=== PATIENT | male | born 1965 | race Caucasian/White ===

== ENCOUNTER 2016-11-13 22:44 | Day surgery (SDC) | payer BC, SELFPAY ==
[~2016-11-13] VITALS: Ht 172.7 cm; Wt 86.7 kg
[2016-11-13 20:15] VITALS: BP 147/87
[~2016-11-13 22:44] MED LIST: metroNIDAZOLE 500 MG in APPROPRIATE DILUENT 1 EA IV SCH
[2016-11-13] MEDS ORDERED: MORPHINE 4 MG/ML 1ML SYRINGE IV PRN (22:45)
[2016-11-13] MEDS ORDERED: ONDANSETRON 4MG/2ML VIAL (J2405) IV PRN (22:45)
[2016-11-13] MEDS ORDERED: ACETAMINOPHEN TAB 650MG DOSE (2X325MG) PO PRN (22:45)
[2016-11-13] MEDS ORDERED: ESCI20TA PO (23:07)
[2016-11-13] MEDS ORDERED: SYNT150T PO (23:07)
[2016-11-13] MEDS ORDERED: LISI10TA4 PO (23:07)
[2016-11-13] MEDS ORDERED: ATOR1TAB21 PO (23:07)
[2016-11-13] MEDS: SENOKOT S TAB PO SCH (23:40)
[2016-11-13] MEDS: PERCOCET 5MG/325MG TAB PO PRN (23:41)
[2016-11-13] MEDS: LR 1,000 ML IV SCH (23:44)
[2016-11-14] VITALS (10 sets, daily range): BP systolic 118–143; BP diastolic 64–83
[2016-11-14] MEDS: AMPICILLIN SOD/SULBACTAM SOD 3 GM in D5W MINI-BAG PLUS 100 ML IV SCH ×5 (00:05→22:13)
[2016-11-14] MEDS: metroNIDAZOLE 500 MG in APPROPRIATE DILUENT 1 EA IV SCH ×4 (00:42→23:09)
[2016-11-14] MEDS: LR 1,000 ML IV SCH ×3 (03:42→21:19)
[2016-11-14] MEDS: SENOKOT S TAB PO SCH ×2 (07:47→19:59)
[2016-11-14] MEDS ORDERED: BUPIVACAINE HCL 0.25% 30 ML VIAL As Ordered ONE (07:54)
[2016-11-14] MEDS ORDERED: LIDOCAINE 1% SDV INJ 30 ML VIAL As Ordered ONE (07:54)
[2016-11-14] MEDS ORDERED: LIDOCAINE 2% INJ 100 MG/5 ML SDV (FOR ANES.) As Ordered ONE (07:55)
[2016-11-14] MEDS: PERCOCET 5MG/325MG TAB PO PRN ×3 (07:55→20:00)
[2016-11-14] MEDS ORDERED: ROCURONIUM BROMIDE 50 MG/5 ML VIAL As Ordered ONE (07:55)
[2016-11-14] MEDS ORDERED: PROPOFOL 200 MG/20 ML VIAL As Ordered ONE (07:55)
[2016-11-14] MEDS ORDERED: MIDAZOLAM INJ 2 MG/2 ML VIAL (J2250) As Ordered ONE (07:56)
[2016-11-14] MEDS ORDERED: fentaNYL 250 MCG/5 ML INJECTION (J3010) As Ordered ONE (07:56)
[2016-11-14] MEDS ORDERED: NEOSTIGMINE 1MG/ML 5 ML SYRINGE (J2710) As Ordered ONE (09:05)
[2016-11-14] MEDS ORDERED: GLYCOPYRROLATE INJ 0.2 MG/ML 2 ML VIAL As Ordered ONE (09:05)
[2016-11-14] MEDS ORDERED: ONDANSETRON 4MG/2ML VIAL (J2405) As Ordered ONE (09:06)
[2016-11-14] MEDS ORDERED: KETOROLAC 60 MG/2 ML VIAL (J1885) As Ordered ONE (09:40)
[2016-11-14] MEDS ORDERED: BUPIVACAINE HCL 0.25% 30 ML VIAL SC ONE (09:56)
[2016-11-14] MEDS ORDERED: LIDOCAINE 1% SDV INJ 30 ML VIAL SC ONE (09:56)
[2016-11-14] MEDS ORDERED: MEPERIDINE INJ 25 MG/ML VIAL (J2175) As Ordered ONE (09:57)
[2016-11-14] MEDS: MEPERIDINE INJ 25 MG/ML VIAL (J2175) IV PRN ×3 (09:58→11:11)
[2016-11-14] MEDS ORDERED: KETOROLAC 30 MG/ML VIAL (J1885) IV PRN (10:30)
[2016-11-14] MEDS ORDERED: ONDANSETRON 4MG/2ML VIAL (J2405) IV PRN (10:30)
[2016-11-14] MEDS ORDERED: fentaNYL 100 MCG/2 ML INJECTION (J3010) IV PRN (10:30)
[2016-11-14] MEDS ORDERED: LR 1,000 ML IV SCH (10:30)
[2016-11-14] MEDS ORDERED: PERCOCET 5MG/325MG TAB PO PRN (10:30)
[2016-11-14] MEDS: LISINOPRIL 10 MG TAB PO SCH (11:24)
[2016-11-15 02:00] VITALS: BP 134/68
[2016-11-15] MEDS: AMPICILLIN SOD/SULBACTAM SOD 3 GM in D5W MINI-BAG PLUS 100 ML IV SCH ×2 (04:04→12:01)
[2016-11-15 06:00] VITALS: BP 132/76
[2016-11-15] MEDS: LR 1,000 ML IV SCH ×2 (06:11→07:45)
[2016-11-15] MEDS: PERCOCET 5MG/325MG TAB PO PRN (06:14)
[2016-11-15] MEDS: metroNIDAZOLE 500 MG in APPROPRIATE DILUENT 1 EA IV SCH (07:45)
[2016-11-15] MEDS: SENOKOT S TAB PO SCH (07:45)
[2016-11-15 07:46] VITALS: BP 145/78
[2016-11-15] MEDS: LISINOPRIL 10 MG TAB PO SCH (07:46)
[2016-11-15] MEDS ORDERED: LISINOPRIL 10 MG TAB PO SCH (09:00)
[2016-11-15 10:00] VITALS: BP 141/93
[2016-11-15] MEDS ORDERED: PERCOCET PO (10:24)
--- NOTE | 2016-11-15 13:39 | RO ---
DATE OF PROCEDURE: 11/14/2016 PREOPERATIVE DIAGNOSIS: Acute appendicitis. POSTOPERATIVE DIAGNOSIS: Acute appendicitis. PROCEDURE PERFORMED: Laparoscopic appendectomy. SURGEON: Junior Mendoza MD RHEOSTAT ASSEMBLER: ANESTHESIA: General anesthesia. ESTIMATED BLOOD LOSS: Less than 25 mL. COMPLICATIONS: None. REMARKS: The patient tolerated procedure well. PROCEDURE NOTE: Mr. Gerardo is admitted as a transfer from [facility] where he presented with an overnight history of ongoing right-sided abdominal pain, found to have evidence of the appendicitis. White cell count 12.7. He was transferred to us and he now is brought to the operating room (OR) for an appendectomy. Consent was obtained from the patient after full discussion of its risks and benefits. He has been receiving Unasyn and metronidazole perioperatively as a scheduled medication. He was brought to the operating room, laid supine on the table. Compression boots placed for deep venous thrombosis (DVT) prophylaxis. General endotracheal anesthesia started without any complication. His abdomen prepped and draped in usual sterile fashion. After surgical time-out, we began our surgery. About a 2 cm transverse incision created on top of the umbilicus, deepened to the anterior fascia. A Veress needle inserted in a controlled fashion. Intra-abdominal placement confirmed with saline drop technique. CO2 insufflation started to a pressure of 15 mmHg. Using the same incision, a 12 mm Visiport was placed under direct vision of the laparoscope. The insertion point was inspected for injury, none was found. He was placed on the Trendelenburg position. His right side tilted up roughly about 30 degrees to retract the bowels away from right lower quadrant. Under direct vision, a 5 mm trocar was placed at the suprapubic and left lower quadrant area. On diagnostic laparoscopy, there was a small amount of serous fluid along the right gutter. The appendix was found adhered to the side of the abdominal wall in between the cecum and the terminal ileum. This is moderately distended from the mid to the distal appendix with vascular congestion. Otherwise, no perforation noted. This was delivered into view using a Bovie. Using laparoscopic laury attached to Bovie cautery, the lateral attachments to the abdominal wall was released. Likewise, some of the fibrous attachments on the underside of the appendix and the cecum was released to further expose the base into view. Using a [place] instrument, a window was created between the base of the appendix and mesoappendix There was a small amount of bleeding from a branch of the appendiceal artery. This was clipped twice with good control of the bleeding. After getting an appropriate window, we switched to a 5 mm port. A 35 mm laparoscopic stapler was then inserted into the abdomen. The base was divided. The stump appears healthy. No bleeding appears at the stump. We further dissected free the mesoappendix and subsequently divided this with the vascular load of the same stapler. A small amount of oozing was at the staple line easily controlled with Bovie cautery. We irrigated and suctioned off all visible irrigant. There was no further bleeding at the site. The appendix was delivered in an EndoCatch bag. This broke off on the first attempt to retrieve the appendix. We enlarged our incision, again placed the appendix with the EndoCatch bag and successfully retrieved it intact this time. On re-insufflation, we inspected our surgical site. No injury or bleeding found. The remaining irrigant suctioned off, including that of around the liver. The abdomen was then deflated. All ports removed. The umbilical fascial defect repaired with #0 Vicryl in a mattress fashion. All skin incisions closed with #4-0 Monocryl in subcuticular fashion. Steri-Strips and gauze dressings then placed. The patient was promptly awakened, extubated, brought to recovery room stable.
== END 2016-11-15 13:21 | disposition home or self-care (01) ==
LOC: M SDC 22:44 → M MSPAV 11-14 03:25 → M SDC 11-14 03:25 → M MSPAV 11-15 13:21
PROVIDERS: ATTEND Surgery
DX: K35.80 Unspecified acute appendicitis (principal); I10 Essential (primary) hypertension; E78.5 Hyperlipidemia, unspecified; E03.9 Hypothyroidism, unspecified; R06.83 Snoring; K22.70 Barrett's esophagus without dysplasia; K21.9 Gastro-esophageal reflux disease without esophagitis
CPT/HCPCS: 44970; 88304; 96374; 96375; J1885; J2175; J2250; J2405; J2710; J3010

== ENCOUNTER → 2018-03-31 | Outpatient (CLI) | payer BC ==
[~2018-03-31] MED LIST changes: +METHACHOLINE KIT (J7674) INH; -metroNIDAZOLE 500 MG in APPROPRIATE DILUENT 1 EA IV SCH
== END ==
LOC: M CARPUL 07:17
DX: J68.4 Chronic respiratory conditions due to chemicals, gases, fumes and vapors (principal)
CPT/HCPCS: J7674

== ENCOUNTER → 2018-04-23 | Outpatient (CLI) | payer BC | LOC: M SLEEP 20:00 | DX: G47.33 Obstructive sleep apnea (adult) (pediatric) (principal) | CPT/HCPCS: 95811 ==

== ENCOUNTER → 2018-08-30 | Outpatient (REF) | payer BC ==
[2018-08-30 17:32] LABS: BASO % 0.4 % (0.0-1.0); EOS # 0.1 10^3/uL (0.0-0.50); HEMATOCRIT 45.1 % (42.0-52.0); HEMOGLOBIN 15.4 g/dl (13.5-17.5); IMMATURE GRANULOCYTE % 0.3 % (0-3.0); LYMPH # 1.8 10^3/uL (1.5-4.5); LYMPH % 26.8 % (24.0-44.0); MEAN CORPUSCULAR HGB CONC 34.1 g/dl (32.0-36.5); MEAN CORPUSCULAR VOLUME 90.7 fl (80.0-96.0); MONO # 0.6 10^3/uL (0.0-0.8); MONO % 8.2 % (0.0-5.0); NEUTROPHILS # 4.3 10^3/uL (1.8-7.7); NEUTROPHILS % 62.3 % (36.0-66.0); PLATELET COUNT, AUTOMATED 266 10^3/uL (150-450); RED BLOOD COUNT 4.97 10^6/uL (4.30-6.10); RED CELL DISTRIBUTION WIDTH 12.6 % (11.5-14.5); WHITE BLOOD COUNT 6.8 10^3/uL (4.0-10.0)
[2018-09-03 00:57] LABS: D001-IgE D pteronyssinus <0.10 kU/L (Class 0); E001-IgE Cat Epith/Dander < 0.10 kU/L (Class 0); E005-IgE Dog Dander < 0.10 kU/L (Class 0); G002-IgE Bermuda Grass < 0.10 kU/L (Class 0); G008-IgE Kentucky Bluegrass < 0.10 kU/L (Class 0); M001-IgE Penicillium chrysogen < 0.10 kU/L (Class 0); M002 IgE Cladosporium herbaru < 0.10 kU/L (Class 0); M003 IgE Aspergillus fumigatu < 0.10 kU/L (Class 0); M006-IgE Alternaria alternata < 0.10 kU/L (Class 0); T001-IgE Maple/Box Elder < 0.10 kU/L (Class 0); T003-IgE Common Silver Birch < 0.10 kU/L (Class 0); T006-IgE Cedar, Mountain < 0.10 kU/L (Class 0); T007-IgE Oak, White < 0.10 kU/L (Class 0); T008-IgE Elm, American < 0.10 kU/L (Class 0); T015-IgE Ash, White < 0.10 kU/L (Class 0); T041-IgE Hickory, White < 0.10 kU/L (Class 0); T070-IgE White Mulberry < 0.10 kU/L (Class 0); W001-IgE Ragweed, Short < 0.10 kU/L (Class 0); W009-IgE Plantain, English 0.13 kU/L (Class 0/I); W014-IgE Pigweed, Rough < 0.10 kU/L (Class 0); W018-IgE Sheep Sorrel 0.11 kU/L (Class 0/I)
== END ==
LOC: M LAB REF 17:19
DX: J68.4 Chronic respiratory conditions due to chemicals, gases, fumes and vapors (principal)
CPT/HCPCS: 82785

== ENCOUNTER → 2018-10-15 | Outpatient (CLI) | payer BC ==
[~2018-10-15] MED LIST changes: +ATOR1TAB21 PO; +ESCI20TA PO; +LISI10TA4 PO; -METHACHOLINE KIT (J7674) INH; +PERCOCET PO; +SYNT150T PO
--- NOTE | 2018-10-17 09:00 | REP ---
MR BRAIN WITHOUT CONTRAST: HISTORY: Dizziness. Several punctate areas of increased signal intensity on T2-weighted images are present in the subcortical white matter. This represents small vessel ischemic disease. There is no intraparenchymal hemorrhage, infarct, mass, or midline shift. A small developmental venous anomaly is present in the anterior left parietal lobe. The ventricular system is normal in appearance. There is no extracerebral collection. Mucosal thickening is present in the left maxillary sinus. IMPRESSION: Minimal small vessel ischemic disease. Electronically Signed by Timothy Odom MD 10/17/2018 09:15 A
== END ==
LOC: M RAD 13:49
PROVIDERS: ATTEND Family Medicine
DX: I67.9 Cerebrovascular disease, unspecified (principal)

== ENCOUNTER → 2019-02-07 | Outpatient (REF) ==
--- NOTE | 2019-02-08 03:10 | REP ---
Clinical: Pain and disability. Technique: AP, lateral, bilateral oblique and sunrise views of the left knee. Findings: Postoperative changes suggesting prior ACL repair noted. Mild/moderate osteoarthritic changes include cortical irregularities at the femoral condyles, very subtle early osteophyte formation along the medial tibial plateau, as well as medial joint space narrowing. [place] view demonstrates increase sclerosis along the posterior patellar margin with minimal lateral patellofemoral narrowing. No acute fracture dislocation. No effusion. Impression: Moderate arthritic changes. Postsurgical changes. Electronically Signed by Blaine Sawant MD 02/08/2019 03:01 A
== END ==
LOC: M SMT 10:39
PROVIDERS: ATTEND Internal Medicine
DX: M51.36 Other intervertebral disc degeneration, lumbar region (principal)

== ENCOUNTER → 2024-12-12 | Outpatient (REF) | payer OTHER ==
[~2024-12-12] MED LIST changes: -ESCI20TA PO; +ESCI20TA16 PO; +LISI10TA22 PO; -LISI10TA4 PO
[2024-12-12 18:02] LABS: ALBUMIN 4.3 G/DL (3.2-5.2); ALKALINE PHOSPHATASE 71 U/L (40-129); ALT/SGPT 151 U/L (7.0-40); AST/SGOT 105 U/L (<34); BILIRUBIN,DIRECT 0.2 MG/DL (<0.4); BILIRUBIN,TOTAL 0.7 MG/DL (0.3-1.2); C REACTIVE PROTEIN QUANTITATIV < 0.50 MG/DL (<1.0)
== END ==
LOC: M SFHCRHEU 14:33
PROVIDERS: ATTEND Internal Medicine
DX: R74.8 Abnormal levels of other serum enzymes (principal); M25.50 Pain in unspecified joint

== ENCOUNTER → 2025-09-17 | Outpatient (REF) | payer OTHER ==
[2025-09-17 15:43] LABS: HEPATITIS B SURFACE ANTIBODY NEGATIVE (POSITIVE)
[2025-09-17 16:16] LABS: HEPATITIS C VIRUS ABY INDEX 0.03 INDEX (<0.8)
== END ==
LOC: M SFHCRHEU 12:41
PROVIDERS: ATTEND Internal Medicine
DX: R74.8 Abnormal levels of other serum enzymes (principal); Z11.59 Encounter for screening for other viral diseases